=== PATIENT | female | born 1940 | race Caucasian/White ===

== ENCOUNTER 2016-12-23 22:19 | Emergency (ER) | payer OTHER ==
[2016-12-23 22:24] VITALS: TEMP 97; BMI 21.2
--- NOTE | 2016-12-23 22:48 | PDOC ---
[id number]: No Limitations - History of Present Illness Initial Comments: 12/23/16 23:23 The patient is a 75 year old female, with a significant past medical history of neuropathy, who presents to the emergency department with chest discomfort since approximately 7-8PM this evening. The patient describes the chest discomfort as a tightness and rates her discomfort as a 7/10 in severity. The patient states that she was sitting down watching TV with her feet up when she first began experiencing the chest discomfort. The patient reports taking a baby aspirin after the discomfort began, with some relief. The patient reports that she just finished a course of antibiotics yesterday for a cough. The patient denies shortness of breath, diaphoresis or palpitations. The patient denies fever, chills, nausea, vomiting, diarrhea or any dysuria. The patient denies any sick contacts at home. The patients daughter is at the bedside. Allergies: None reported. Past Surgical History: Cataract Surgery, Hammertoe Surgery. Social History: Former smoker (quit in 1974). Denies alcohol or drug use. PCP: Dr. Donato Mendez <Elana Sheriff - Last Filed: 12/24/16 00:53> <Drake Erickson - Last Filed: 12/28/16 02:34> - General Chief Complaint: Injury Stated Complaint: INJURY Time Seen by Provider: 12/23/16 22:36 Past History <Elana Sheriff - Last Filed: 12/24/16 00:53> - Past Medical History Anemia: No Asthma: No Cancer: No Cardiac Disorders: No CVA: No COPD: No CHF: No Dementia: No Diabetes: No GI Disorders: No Disorders: No HTN: No Hypercholesterolemia: No Liver Disease: No Seizures: No Thyroid Disease: No Other medical history: neuropathy - Surgical History Abdominal Surgery: No Appendectomy: No Cardiac Surgery: No Cholecystectomy: No Lung Surgery: No Neurologic Surgery: No Orthopedic Surgery: No - Psycho/Social/Smoking Cessation Hx Suicidal Ideation: No Smoking History: Never smoked Have you smoked in the past 12 months: No If you are a former smoker, when did you quit?: 1974 Information on smoking cessation initiated: No Hx Alcohol Use: Yes Drug/Substance Use Hx: No Substance Use Type: Alcohol Hx Substance Use Treatment: No <Drake Erickson - Last Filed: 12/28/16 02:34> - Past Medical History Allergies/Adverse Reactions: Allergies Allergy/AdvReac Type Severity Reaction Status Date / Time No Known Drug Allergies Allergy Verified 12/23/16 22:24 Home Medications: Ambulatory Orders Aspirin Coated [Ecotrin -] 81 mg PO HS 08/04/16 Atorvastatin Ca [Lipitor] 20 mg PO UTDICT 08/04/16 Calcium 250Mg/Vit-D 125 Units [Oscal 250 mg+D -] 1 combo PO DAILY 08/04/16 Review of Systems - Review of Systems Able to Perform ROS?: Yes Comments:: 12/23/16 23:18 CONSTITUTIONAL: No fever, no chills, no fatigue EYES: No visual changes ENT: No ear pain, no sore throat CARDIOVASCULAR: +Chest discomfort. No palpitations RESPIRATORY: No cough, no SOB GI: No abdominal pain, no nausea, no vomiting, no constipation, no diarrhea GENITOURINARY: No dysuria, no frequency, no hematuria MUSKULOSKELETAL: No back pain, no joint pain, no myalgias SKIN: No rash NEURO: No headache <Elana Sheriff - Last Filed: 12/24/16 00:53> *Physical Exam - Vital Signs Last Vital Signs Temp Pulse Resp BP Pulse Ox 97 F L 68 18 136/72 99 12/23/16 22:21 12/23/16 22:21 12/23/16 22:21 12/23/16 22:21 12/23/16 22:21 - Physical Exam Comments: 12/23/16 23:08 CONSTITUTIONAL: Well-appearing; well-nourished; in no apparent distress. HEAD: Normocephalic; atraumatic. EYES: PERRL; EOM intact. ENMT: External appears normal; normal oropharynx. NECK: Supple; non-tender; no cervical lymphadenopathy. CHEST: Reproducible midsternal chest wall tenderness to palpation. CARD: Normal S1, S2; no murmurs, rubs, or gallops. RESP: Normal chest excursion with respiration; breath sounds clear and equal bilaterally; no wheezes, rhonchi, or rales. ABD: Soft, non-distended; non-tender; no palpable organomegaly, no palpable hernias. EXT: Normal ROM in all four extremities; non-tender to palpation; distal pulses intact. SKIN: Warm, dry, no rash. NEURO: No focal neurological deficiencies. <Elana Sheriff - Last Filed: 12/24/16 00:53> - Vital Signs Last Vital Signs Temp Pulse Resp BP Pulse Ox 97 F L 68 18 136/72 99 12/23/16 22:21 12/23/16 22:21 12/23/16 22:21 12/23/16 22:21 12/23/16 22:21 <Drake Erickson - Last Filed: 12/28/16 02:34> Heart Score/ECG Review #1 ECG reviewed & interpreted by me at: 22:44 (Vent Rate: 65 bpm. Sinus rhythm. Poor R wave progression precordial leads. Possible left atrial enlargement.) #2 ECG reviewed & interpreted by me at: 00:43 (Vent Rate: 60 bpm. Sinus rhythm. Poor R wave progression precordial leads. ) <Elana Sheriff - Last Filed: 12/24/16 00:53> ED Treatment Course - LABORATORY CBC & Chemistry Diagram: 12/23/16 23:07 12/23/16 23:55 <Elana Sheriff - Last Filed: 12/24/16 00:53> - LABORATORY CBC & Chemistry Diagram: 12/23/16 23:07 12/23/16 23:55 <Drake Erickson - Last Filed: 12/28/16 02:34> Medical Decision Making - Medical Decision Making 12/24/16 00:40 Patient is a 75-year-old female who presents with atypical chest discomfort several hours duration. In the ER, patient is awake and alert, hemodynamically stable, with reproducible midsternal tenderness to palpation. EKG shows no evidence of acute ischemia. Chest x-ray reveals no evidence of infiltrate or effusion. There is no evidence of cardiomegaly. Differential diagnoses includes ACS versus costochondritis given patient has recently recovered from a respiratory infection treated with Zithromax. We'll administer aspirin and transdermal nitroglycerin. Will obtain serial cardiac enzymes and EKGs. If negative, we'll consider discharge with outpatient follow-up. <Drake Erickson - Last Filed: 12/28/16 02:34> *DC/Admit/Observation/Transfer - Attestations Scribe Attestion: 12/23/16 22:58 Documentation prepared by Elana Sheriff, acting as medical office rep for Drake Erickson MD. <Elana Sheriff - Last Filed: 12/24/16 00:53> - Attestations Physician Attestion: 12/24/16 00:40 The documentation was prepared by the scribe under my direct supervision. I have reviewed the documentation which correctly represents the findings, medical decision-making and critical action taken by me. <Drake Erickson - Last Filed: 12/28/16 02:34> Diagnosis at time of Disposition: Chest pain - Discharge Dispostion Disposition: HOME Condition at time of disposition: Good - Referrals Referrals: Donato Mendez MD [Primary Care Provider] - - Patient Instructions Additional Instructions: At this time, there is no evidence of any damage to the heart tissues and your evaluation is reassuring. It is essential for you to follow up with the PMD within the next 24 hours and if there is any change otherwise in your symptoms, please return immediately to the ED.
[2016-12-23] MEDS ORDERED: NITROGLYCERIN 2% OINTMENT - 1GM PACKET TD ONE ×3 (23:08→23:50)
[2016-12-23] MEDS ORDERED: ASPIRIN 81 MG CHEWABLE TABLETS PO ONE (23:08)
[2016-12-23] MEDS ORDERED: ASPIRIN 81 MG CHEWABLE TABLETS ONE (23:49)
[2016-12-24 00:20] LABS: BASOPHIL 0.7 % (0-2.0); EOSINOPHIL 1.9 % (0-4.5); MCH 31.6 pg (25.7-33.7); MCHC 33.9 g/dl (32.0-36.0); MEAN CELL VOLUME 93.2 fl (80-96); MEAN PLT VOLUME 6.6 fl (7.5-11.1); PLATELET COUNT 311 K/MM3 (134-434); RDW 13.1 % (11.6-15.6); WHITE BLOOD COUNT 7.8 K/mm3 (4.0-10.0)
[2016-12-24 00:34] LABS: INR 1.09 (0.82-1.09)
[2016-12-24 00:43] LABS: ALBUMIN 3.6 g/dl (3.4-5.0); ANION GAP 8 (8-16); BILIRUBIN,TOTAL 0.3 mg/dL (0.2-1.0); CALCIUM 8.9 mg/dL (8.5-10.1); CO2 30 mmol/L (21-32); CREATININE 0.7 mg/dL (0.55-1.02); GLUCOSE,RANDOM 104 mg/dL (74-106); SGOT/AST 19 U/L (15-37); SGPT/ALT 22 U/L (12-78); TOT PROT 7.4 g/dl (6.4-8.2)
[2016-12-24 00:45] LABS: ALK PHOS 85 U/L (45-117); TROPONIN I < 0.02 ng/ml (0.00-0.05)
--- NOTE | 2016-12-24 02:17 | PDOC ---
*Physical Exam - Vital Signs Last Vital Signs Temp Pulse Resp BP Pulse Ox 97 F L 68 18 136/72 99 12/23/16 22:21 12/23/16 22:21 12/23/16 22:21 12/23/16 22:21 12/23/16 22:21 ED Treatment Course - LABORATORY CBC & Chemistry Diagram: 12/23/16 23:07 12/23/16 23:55 - ADDITIONAL ORDERS Additional order review: Laboratory Results 12/23/16 12/23/16 23:55 23:55 INR 1.09 Sodium 139 Potassium 4.4 Chloride 101 Carbon Dioxide 30 Anion Gap 8 BUN 15 Creatinine 0.7 Creat Clearance w eGFR > 60 Random Glucose 104 Calcium 8.9 Total Bilirubin 0.3 AST 19 ALT 22 Alkaline Phosphatase 85 Creatine Kinase 102 Troponin I < 0.02 Total Protein 7.4 Albumin 3.6 12/23/16 23:07 RBC 4.12 MCV 93.2 MCHC 33.9 RDW 13.1 MPV 6.6 L Neutrophils % 71.0 Lymphocytes % 16.5 Monocytes % 9.9 Eosinophils % 1.9 Basophils % 0.7 - Medications Given in the ED: ED Medications Discontinued Medications Generic Name Dose Route Start Last Admin Trade Name Freq PRN Reason Stop Dose Admin Aspirin 162 mg 12/23/16 23:08 12/23/16 23:40 Asa - PO 12/23/16 23:09 162 mg ONCE ONE Administration Nitroglycerin 0.5 inch 12/23/16 23:08 12/23/16 23:40 Nitro-Bid 2% Paste - TD 12/23/16 23:09 0.5 inch ONCE ONE Administration Medical Decision Making - Medical Decision Making 12/24/16 02:16 Pt received on sign out, comfortable. The patient presents with atypical chest pain; initial troponin and EKG reassuring. She will have another troponin at 0500 and will repeat EKG as well; she will likely be discharged pending abnormality. 12/24/16 06:13 Troponin repeat is negative and she has no current symptoms. She is discharged at this time with instruction to return if there is any change otherwise in symptoms. Encouraged to follow up with the PMD within 24 hours. *DC/Admit/Observation/Transfer Diagnosis at time of Disposition: Chest pain Qualifiers: Chest pain type: other chest pain Qualified Code(s): R07.89 - Other chest pain ; R07.8 - Other chest pain - Discharge Dispostion Disposition: HOME Condition at time of disposition: Good Admit: No Decision to Admit order Date/Time: 12/24/16 06:14 - Referrals Referrals: Donato Mendez MD [Primary Care Provider] - - Patient Instructions Additional Instructions: At this time, there is no evidence of any damage to the heart tissues and your evaluation is reassuring. It is essential for you to follow up with the PMD within the next 24 hours and if there is any change otherwise in your symptoms, please return immediately to the ED. - Post Discharge Activity
[2016-12-24 04:28] VITALS: BP 125/65; PULSE 65
--- NOTE | 2016-12-24 11:12 | EKG ---
Test Reason : Blood Pressure : / mmHG Vent. Rate : 060 BPM Atrial Rate : 060 BPM P-R Int : 252 ms QRS Dur : 086 ms QT Int : 416 ms P-R-T Axes : 066 041 061 degrees QTc Int : 416 ms SINUS RHYTHM WITH 1ST DEGREE A-V BLOCK POSSIBLE ANTERIOR INFARCT , AGE UNDETERMINED ABNORMAL ECG WHEN COMPARED WITH ECG OF 23-DEC-2016 22:44, NO SIGNIFICANT CHANGE WAS FOUND Confirmed by MADIHA SERRATO MD ([id number]) on 12/24/2016 11:12:17 AM Referred By: Confirmed By:MADIHA SERRATO MD
--- NOTE | 2016-12-24 11:34 | EKG ---
Test Reason : Blood Pressure : / mmHG Vent. Rate : 065 BPM Atrial Rate : 065 BPM P-R Int : 228 ms QRS Dur : 080 ms QT Int : 402 ms P-R-T Axes : 066 019 054 degrees QTc Int : 418 ms POOR DATA QUALITY, INTERPRETATION MAY BE ADVERSELY AFFECTED SINUS RHYTHM WITH 1ST DEGREE A-V BLOCK POSSIBLE LEFT ATRIAL ENLARGEMENT BORDERLINE ECG NO PREVIOUS ECGS AVAILABLE Confirmed by ROJELIO LINDO, MADIHA ([id number]) on 12/24/2016 11:33:47 AM Referred By: Confirmed By:MADIHA SERRATO MD
== END 2016-12-24 06:26 | disposition home or self-care (01) ==
LOC: JER 22:19
DX: R07.89 Other chest pain (principal)
CPT/HCPCS: 36415; 71010-TC; 80053; 82550; 84484; 85025; 85610; 93005; 93010; 99283-25

== ENCOUNTER 2017-04-05 21:03 | Inpatient (IN) | payer OTHER ==
--- NOTE | 2017-04-05 21:08 | PDOC ---
History of Present Illness - History of Present Illness Initial Comments: 04/05/17 21:37 Patient is a 76 year old female presenting to the ED with several episodes of difficulty speaking from 6:00PM this evening. Patient is accompanied by daughter who reports the patient had multiple episodes of difficulty articulating her sentences and word finding. She states that the patient was not slurring her words but she does have a mild stutter at baseline which seemed to be worse this evening. The patient is talking during interview and is able to answer questions in clear sentences. Daughter notes that the patient has been having numbness and tingling to her lower extremities bilaterally for the past month that has been followed up with by Dr. Aguilar. Denies facial droop, weakness, difficulty with coordination, or headache. <Irene Mccann - Last Filed: 04/05/17 23:34> <Drake Erickson - Last Filed: 04/06/17 02:18> - General Chief Complaint: CVA/TIA Stated Complaint: Altered Mental Status Time Seen by Provider: 04/05/17 21:08 Past History <Irene Mccann - Last Filed: 04/05/17 23:34> - Past Medical History Anemia: No Asthma: No Cancer: No Cardiac Disorders: No CVA: No COPD: No CHF: No Dementia: No Diabetes: No GI Disorders: No Disorders: No HTN: No Hypercholesterolemia: No Liver Disease: No Seizures: No Thyroid Disease: No - Surgical History Abdominal Surgery: No Appendectomy: No Cardiac Surgery: No Cholecystectomy: No Lung Surgery: No Neurologic Surgery: No Orthopedic Surgery: No - Psycho/Social/Smoking Cessation Hx Suicidal Ideation: No Smoking History: Never smoked Have you smoked in the past 12 months: No If you are a former smoker, when did you quit?: 1974 Information on smoking cessation initiated: No Hx Alcohol Use: No Drug/Substance Use Hx: No Substance Use Type: Alcohol Hx Substance Use Treatment: No <Drake Erickson - Last Filed: 04/06/17 02:18> - Past Medical History Allergies/Adverse Reactions: Allergies Allergy/AdvReac Type Severity Reaction Status Date / Time No Known Drug Allergies Allergy Verified 04/05/17 21:06 Home Medications: Ambulatory Orders Aspirin Coated [Ecotrin -] 81 mg PO HS 08/04/16 Atorvastatin Ca [Lipitor] 20 mg PO UTDICT 08/04/16 Calcium 250Mg/Vit-D 125 Units [Oscal 250 mg+D -] 1 combo PO DAILY 08/04/16 Review of Systems - Review of Systems Comments:: 04/05/17 21:38 CONSTITUTIONAL: No fever, no chills, no fatigue EYES: No visual changes ENT: No ear pain, no sore throat CARDIOVASCULAR: No chest pain, no palpitations RESPIRATORY: No cough, no SOB GI: No abdominal pain, no nausea, no vomiting, no constipation, no diarrhea GENITOURINARY: No dysuria, no frequency, no hematuria MUSKULOSKELETAL: No backpain, no joint pain, no myalgias SKIN: No rash NEURO: Difficulty articulating sentences and word finding, mild stutter, lower extremity numbness/tingling. No headache <Irene Mccann - Last Filed: 04/05/17 23:34> *Physical Exam - Vital Signs Last Vital Signs Temp Pulse Resp BP Pulse Ox 98.9 F 92 H 18 115/51 97 04/05/17 21:06 04/05/17 21:06 04/05/17 21:06 04/05/17 21:06 04/05/17 21:06 <Irene Mccann - Last Filed: 04/05/17 23:34> - Vital Signs Last Vital Signs Temp Pulse Resp BP Pulse Ox 98.9 F 92 H 18 115/51 97 04/05/17 21:06 04/05/17 21:06 04/05/17 21:06 04/05/17 21:06 04/05/17 21:06 - Physical Exam Comments: 04/05/17 21:39 EXAMINATION CONSTITUTIONAL: Well-appearing; well-nourished; in no apparent distress HEAD: Normocephalic; atraumatic EYES: PERRL; EOM intact ENMT: External appears normal; normal oropharynx NECK: Supple; non-tender; no cervical lymphadenopathy CARD: Normal S1, S2; no murmurs, rubs, or gallops RESP: Normal chest excursion with respiration; breath sounds clear and equal bilaterally; no wheezes, rhonchi, or rales ABD: Soft, non-distended; non-tender; no palpable organomegaly, no palpable hernias EXT: Normal ROM in all four extremities; non-tender to palpation; distal pulses intact SKIN: Warm, dry, no rash NEURO: AOx3, cranial nerves II through XII grossly intact; motor is 5 of 54; there is no pronation drift; gait-deferred. <DreDrake - Last Filed: 04/06/17 02:18> NIH Stroke Scale - Last Known Well Date/Time & Onset Date Last Known Well: 04/05/17 Time Last Known Well: 06:15 - Initial Evaluation Level of consciousness: Alert Ask patient the month and their age: Answers both correctly Ask patient to open & close eyes; make fist and let go: Obeys both correctly Best gaze (horizontal eye movement): Normal Visual field testing: No visual field loss Facial paresis (Show teeth/raise eyebrows/close eyes tight): Normal symmetrical movement Motor Function: Left Arm: Normal Motor Function: Right Arm: Normal (extends arm 90 (or 45) degrees for 10 seconds without drift Motor Function: Left Leg: Normal (extends leg 30 degrees for 5 seconds without drift) Motor Function: Right Leg: Normal (extends leg 30 degrees for 5 seconds without drift) Limb Ataxia: No ataxia Sensory(Use pinprick test arms,legs,trunk,face/side to side): Normal Best language (Describe picture, name items, read sentences): Mild to moderate aphasia Dysarthria (read several words): Normal articulation Extinction and Inattention: No abnormality - Total Score NIH Stroke Scale Score: 1 <DreDrake - Last Filed: 04/06/17 02:18> Heart Score/ECG Review #1 04/05/17 23:34 Normal sinus rhythm at 83 bpm Possible Anterior infarct, age undetermined Abnormal ECG <Irene Mccann - Last Filed: 04/05/17 23:34> Critical Care Time/MDM Note - Medical Decision Making Note: 04/05/17 21:44 Patient 76-year-old female who presents with signs and symptoms of expressive aphasia (word finding difficulty) that has recurred several times since 6:15 on the day of arrival. Patient's last episode occurred shortly before evaluation by this Love immediately upon arrival in the ER. NIH stroke scale is noted to be 1. Initial head CT showed no evidence of acute intracranial pathology. Case discussed with Dr. Guerra of neurology. Given the low NIH stroke scale and the resolution of the patient's symptoms, patient was not a TPA candidate. Patient had received aspirin by mouth, and was scheduled for a carotid Doppler and CTA of brain. 04/05/17 22:25 Patient noted to have suffered a generalized tonic-clonic seizure that required 1 mg of Ativan to terminate. Will obtain CTA of brain with IV contrast. We'll rediscuss with neurology. 04/05/17 22:[address] Guerra again. Recommends administration of Keppra-1000 mg IV. 04/06/17 01:15 Patient regaining normal mental status, follows commands, no focal neurological deficits are appreciated. CTA of brain shows no evidence of aneurysmal dilatated dilation or significant stenosis or occlusion. Will admit to stroke/ telemetry further evaluation and treatment with seizure precautions. <Drake Erickson - Last Filed: 04/06/17 02:18> Discharge Disposition <Irene Mccann - Last Filed: 04/05/17 23:34> - Discharge Dispostion Admit: Yes <Drake Erickson - Last Filed: 04/06/17 02:18> - Diagnosis Seizure TIA (transient ischemic attack) Qualifiers: Transient cerebral ischemia type: unspecified Qualified Code(s): G45.9 - Transient cerebral ischemic attack, unspecified - Referrals Attestations - Attestations 04/05/17 21:38 Documentation prepared by Irene Mccann, acting as emergency medical technician/driver for Drake Erickson MD. <Irene Mccann - Last Filed: 04/05/17 23:34> ED Treatment Course - LABORATORY CBC & Chemistry Diagram: 04/05/17 21:30 04/05/17 21:30 - RADIOLOGY Radiograph Interpretation: 04/05/17 21:[address] Impression: No CT evidence of acute intracranial pathology as discussed. Moderate periventricular chronic microvascular ischemic changes are seen. A small amount of fluid is noted within the left mastoid air cells posteriorly. Reported By: Rjei Epps MD <Irene Mccann - Last Filed: 04/05/17 23:34> - LABORATORY CBC & Chemistry Diagram: 04/05/17 21:30 04/05/17 21:30 <Drake Erickson - Last Filed: 04/06/17 02:18>
[2017-04-05 21:10] VITALS: BMI 20.3
[2017-04-05] MEDS ORDERED: ASPIRIN 81 MG CHEWABLE TABLETS PO ONE (21:31)
[2017-04-05] MEDS ORDERED: ASPIRIN 81 MG CHEWABLE TABLETS ONE (21:50)
[2017-04-05] MEDS: SODIUM CHLORIDE 1,000 ML IV SCH (21:59)
[2017-04-05 22:00] LABS: BASOPHIL 1.1 % (0-2.0); EOSINOPHIL 0.5 % (0-4.5); MCH 28.6 pg (25.7-33.7); MCHC 32.9 g/dl (32.0-36.0); MEAN PLT VOLUME 6.2 fl (7.5-11.1); NEUTROPHILS 81.3 % (42.8-82.8); PLATELET COUNT 438 K/MM3 (134-434); RDW 14.5 % (11.6-15.6); WHITE BLOOD COUNT 9.7 K/mm3 (4.0-10.0)
[2017-04-05] MEDS ORDERED: LORazepam 2 MG/ML SDV VIAL ONE (22:12)
[2017-04-05 22:16] LABS: INR 1.28 (0.82-1.09); PROTHROMBIN TIME (PATIENT) 14.1 SEC (9.98-11.88)
[2017-04-05 22:28] LABS: ALBUMIN 2.5 g/dl (3.4-5.0); ANION GAP 10 (8-16); BILIRUBIN,TOTAL 0.4 mg/dL (0.2-1.0); CALCIUM 8.4 mg/dL (8.5-10.1); CHOLESTEROL 169 mg/dL (50-200); CO2 26 mmol/L (21-32); CREATININE 0.5 mg/dL (0.55-1.02); GLUCOSE,RANDOM 101 mg/dL (74-106); LDL CHOLESTEROL (ONLY SJRH) 123 mg/dL (5-100); SGOT/AST 53 U/L (15-37); SGPT/ALT 58 U/L (12-78); TOT PROT 6.7 g/dl (6.4-8.2)
[2017-04-05 22:29] LABS: ALK PHOS 130 U/L (45-117); TROPONIN I < 0.02 ng/ml (0.00-0.05)
[2017-04-05] MEDS ORDERED: levETIRAcetam 500 MG/5 ML INJECTION VIAL IVPB ONE ×2 (22:32→22:36)
[2017-04-06] MEDS ORDERED: LORazepam 0.5 MG TABLET PO ONE (01:37)
[2017-04-06] MEDS ORDERED: LORazepam 0.5 MG TABLET ONE (02:29)
[2017-04-06 06:30] LABS: URINE APPEARANCE CLEAR; URINE BILIRUBIN NEGATIVE (NEGATIVE); URINE COLOR STRAW; URINE GLUCOSE (UA) NEGATIVE (NEGATIVE); URINE KETONE TRACE (NEGATIVE); URINE LEUK ESTERASE NEGATIVE (NEGATIVE); URINE NITRITE NEGATIVE (NEGATIVE); URINE PROTEIN NEGATIVE (NEGATIVE); URINE UROBILINOGEN NEGATIVE E.U./dl (0.2-1.0)
[2017-04-06 06:35] LABS: URINE BLOOD 1+ (NEGATIVE)
[2017-04-06 06:38] LABS: URINE MARIJUANA THC NEGATIVE ng/ml (CUTOFF=50)
[2017-04-06 06:40] LABS: URINE WBC 1 /hpf (3-5)
--- NOTE | 2017-04-06 08:28 | CON.NEURO ---
Consult - History of Present Illness History of Present Illness: 76 year old female presenting to the ED with several episodes of difficulty speaking from 6:00PM this evening. Patient is accompanied by daughter who reports the patient had multiple episodes of difficulty articulating her sentences and word finding. She states that the patient was not slurring her words but she does have a mild stutter at baseline which seemed to be worse this evening. The patient is talking during interview and is able to answer questions in clear sentences. Daughter notes that the patient has been having numbness and tingling to her lower extremities --treated empirically as RLS-- started on mirapex; she feels did not suite her--di not take last 48 hours. Did take double dose cipro day bf yesterday. IN ER -- noted to have generalized seizure. Denies facial droop, weakness, difficulty with coordination, or headache CTA (-), Doppler (-). - History Source History Provided By: Patient - Alcohol/Substance Use Hx Alcohol Use: No - Smoking History Smoking history: Never smoked Have you smoked in the past 12 months: No If you are a former smoker, when did you quit?: 1975 Home Medications - Allergies Allergies/Adverse Reactions: Allergies Allergy/AdvReac Type Severity Reaction Status Date / Time No Known Drug Allergies Allergy Verified 04/05/17 21:06 - Home Medications Home Medications: Ambulatory Orders Aspirin Coated [Ecotrin -] 81 mg PO DAILY 08/04/16 Atorvastatin Ca [Lipitor] 20 mg PO ASDIR 08/04/16 Calcium 250Mg/Vit-D 125 Units [Oscal 250 mg+D -] 1 combo PO DAILY 08/04/16 Ciprofloxacin HCl [Cipro] 500 mg PO BID 04/06/17 Pramipexole Dihydrochloride [Mirapex -] 0.25 mg PO HS 04/06/17 Physical Exam-Neuro Vital Signs: Vital Signs Temperature 98.9 F 04/05/17 21:06 Pulse Rate 67 04/06/17 06:27 Respiratory Rate 18 04/06/17 06:27 Blood Pressure 116/72 04/06/17 06:27 O2 Sat by Pulse Oximetry (%) 100 04/06/17 06:27 Constitutional: Yes: Well Nourished Neck: Yes: WNL Respiratory: Yes: Regular Gastrointestinal: Yes: Normal Bowel Sounds Labs: INR, PTT INR 1.28 (0.82-1.09) H 04/05/17 21:30 CBCD WBC 9.7 K/mm3 (4.0-10.0) 04/05/17 21:30 RBC 3.63 M/mm3 (3.60-5.2) 04/05/17 21:30 Hgb 10.4 GM/dL (10.7-15.3) L D 04/05/17 21:30 Hct 31.6 % (32.4-45.2) L D 04/05/17 21:30 MCV 87.0 fl (80-96) 04/05/17 21:30 MCHC 32.9 g/dl (32.0-36.0) 04/05/17 21:30 RDW 14.5 % (11.6-15.6) D 04/05/17 21:30 Plt Count 438 K/MM3 (134-434) H D 04/05/17 21:30 MPV 6.2 fl (7.5-11.1) L 04/05/17 21:30 CMP Sodium 131 mmol/L (136-145) L 04/05/17 21:30 Potassium 3.9 mmol/L (3.5-5.1) 04/05/17 21:30 Chloride 95 mmol/L (98-107) L 04/05/17 21:30 Carbon Dioxide 26 mmol/L (21-32) 04/05/17 21:30 Anion Gap 10 (8-16) 04/05/17 21:30 BUN 12 mg/dL (7-18) 04/05/17 21:30 Creatinine 0.5 mg/dL (0.55-1.02) L D 04/05/17 21:30 Creat Clearance w eGFR > 60 (>60) 04/05/17 21:30 Calcium 8.4 mg/dL (8.5-10.1) L 04/05/17 21:30 Total Bilirubin 0.4 mg/dL (0.2-1.0) D 04/05/17 21:30 AST 53 U/L (15-37) H D 04/05/17 21:30 ALT 58 U/L (12-78) D 04/05/17 21:30 Alkaline Phosphatase 130 U/L (45-117) H D 04/05/17 21:30 Total Protein 6.7 g/dl (6.4-8.2) 04/05/17 21:30 Albumin 2.5 g/dl (3.4-5.0) L D 04/05/17 21:30 - Neuro Exam Level Of Consciousness: Yes: Alert (awake and alert, EOMI, VFF, no facial, motor 5/5, no drift, plantars up ) NIH Stroke Scale - Total Score NIH Stroke Scale Score: 0 Imaging - Results Cat Scan: Report Reviewed, Image Reviewed (04/05/17 Status: [place] [address] Unit Number: [id number] EXAM#: TYPE /EXAM: RESULT: [id number] US/CAROTID COLOR FLOW DOPP US HISTORY PROVIDED: Expressive aphasia Real time and doppler evaluation of the carotid arteries demonstrates the following: A small amount of atherosclerotic plaque is identified on real time imaging of the common carotid and proximal internal and external carotid arteries bilaterally. On the right side, Doppler velocity measurements are within normal limits within these vessels with no velocity elevations suspicious for hemodynamically significant stenoses. On the left side , Doppler velocity measurements are elevated within the common carotid artery. Velocities return to normal distally are not significantly elevated within the internal carotid artery. Slightly elevated velocities are noted within the external carotid. Forward flow is present within both vertebral arteries. IMPRESSION: Mild atherosclerotic disease with no evidence of hemodynamically significant stenoses.) Problem List - Problems (1) Seizure Code(s): R56.9 - UNSPECIFIED CONVULSIONS (2) TIA (transient ischemic attack) Code(s): G45.9 - TRANSIENT CEREBRAL ISCHEMIC ATTACK, UNSPECIFIED Qualifiers: Transient cerebral ischemia type: unspecified Qualified Code(s): G45.9 - Transient cerebral ischemic attack, unspecified Assessment/Plan 76 year old female presenting to the ED with several episodes of difficulty speaking from 6:00PM this evening. Patient is accompanied by daughter who reports the patient had multiple episodes of difficulty articulating her sentences and word finding. She states that the patient was not slurring her words but she does have a mild stutter at baseline which seemed to be worse this evening. The patient is talking during interview and is able to answer questions in clear sentences. Daughter notes that the patient has been having numbness and tingling to her lower extremities --treated empirically as RLS-- started on mirapex; she feels did not suite her--di not take last 48 hours. Did take double dose cipro day bf yesterday. IN ER -- noted to have generalized seizure. Denies facial droop, weakness, difficulty with coordination, or headache CTA (-), Doppler (-). new onset seziures-- ? cipro effect, doubt mirapax induced; no clear signs of infection/meningitis, encephalitis no role in LP at this juncture MRI BRAIN with DEUCE elevated LFTS , anemia--GI ORTIZ (anemia can cause RLS) keppra 500BID outpt EEG Dr Guerra
--- NOTE | 2017-04-06 09:13 | HP ---
Admitting History and Physical - Admission Chief Complaint: [place] SEIZURE LAST NIGHT. 2 DAYS PROIR HAD SHIVERING EPISODE. 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 Pulmonary: Yes: COPD ...: No Heme/Onc: Yes: Anemia Rheumatology: Yes: Other (O/A) - Past Surgical History Past Surgical History: Yes: Cataract Removal (BREAST BENGHN LESION) - Smoking History Smoking history: Never smoked Have you smoked in the past 12 months: No If you are a former smoker, when did you quit?: 1974 - Alcohol/Substance Use Hx Alcohol Use: No - Social History Usual Living Arrangement: Yes: With Spouse ADL: Independent History of Recent Travel: No Home Medications - Allergies Allergies/Adverse Reactions: Allergies Allergy/AdvReac Type Severity Reaction Status Date / Time No Known Drug Allergies Allergy Verified 04/05/17 21:06 - Home Medications Home Medications: Ambulatory Orders Aspirin Coated [Ecotrin -] 81 mg PO DAILY 08/04/16 Atorvastatin Ca [Lipitor] 20 mg PO ASDIR 08/04/16 Calcium 250Mg/Vit-D 125 Units [Oscal 250 mg+D -] 1 combo PO DAILY 08/04/16 Ciprofloxacin HCl [Cipro] 500 mg PO BID 04/06/17 Pramipexole Dihydrochloride [Mirapex -] 0.25 mg PO HS 04/06/17 Family Disease History - Family Disease History Family History: Unremarkable (BROTHER Yumiko MUKHERJEE ) Review of Systems - Review of Systems Constitutional: reports: No Symptoms Eyes: reports: No Symptoms HENT: reports: No Symptoms Neck: reports: No Symptoms Cardiovascular: reports: No Symptoms Respiratory: reports: No Symptoms Gastrointestinal: reports: No Symptoms Genitourinary: reports: No Symptoms Breasts: reports: No Symptoms Reported Musculoskeletal: reports: No Symptoms Integumentary: reports: No Symptoms (RLS) Endocrine: reports: No Symptoms Hematology/Lymphatic: reports: No Symptoms Psychiatric: reports: No Symptoms Physical Examination Vital Signs: Vital Signs Temperature 98.9 F 04/05/17 21:06 Pulse Rate 67 04/06/17 06:27 Respiratory Rate 18 04/06/17 06:27 Blood Pressure 116/72 04/06/17 06:27 O2 Sat by Pulse Oximetry (%) 100 04/06/17 06:27 Constitutional: Yes: Other (LOSS APETITE) Eyes: Yes: WNL HENT: Yes: WNL Neck: Yes: WNL Cardiovascular: Yes: WNL Respiratory: Yes: WNL Gastrointestinal: Yes: WNL ...Rectal Exam: Yes: Deferred Renal/: Yes: WNL Breast(s): Yes: WNL Musculoskeletal: Yes: WNL Extremities: Yes: WNL Edema: No Peripheral Pulses WNL: Yes Integumentary: Yes: WNL Neurological: Yes: Babinski positive (QUESTIONABLE) ...Motor Strength: WNL Psychiatric: Yes: WNL Problem List - Problems (1) Seizure Code(s): R56.9 - UNSPECIFIED CONVULSIONS Assessment/Plan MRI BRAIN ANEMIA W/U GI CT CHEST DUE TI GRANULAMATUOS DZ IN PAST LUNG LIVER ULRASOUD AT MINIMUM FOR NOW HAD LFTS IN PAST W/U NEG IN MY OFFICE DYANA WILCOX LAST COLONOSCOPY 2011 NEG
[2017-04-06] MEDS: levETIRAcetam 500 MG TABLET (FP) PO SCH ×2 (10:33→22:32)
[2017-04-06] MEDS ORDERED: levETIRAcetam 500 MG TABLET (FP) PO ONE (10:33)
[2017-04-06 10:56] LABS: BASOPHIL 0.4 % (0-2.0); EOSINOPHIL 1.2 % (0-4.5); MCH 29.2 pg (25.7-33.7); MCHC 33.3 g/dl (32.0-36.0); MEAN CELL VOLUME 87.6 fl (80-96); MEAN PLT VOLUME 5.9 fl (7.5-11.1); NEUTROPHILS 79.6 % (42.8-82.8); PLATELET COUNT 391 K/MM3 (134-434); RDW 14.5 % (11.6-15.6); WHITE BLOOD COUNT 7.9 K/mm3 (4.0-10.0)
[2017-04-06] MEDS: FERROUS GLUCONATE 324 MG TAB (FP) PO SCH (14:06)
--- NOTE | 2017-04-06 17:11 | EKG ---
Test Reason : Blood Pressure : / mmHG Vent. Rate : 083 BPM Atrial Rate : 083 BPM P-R Int : 166 ms QRS Dur : 084 ms QT Int : 378 ms P-R-T Axes : 052 036 058 degrees QTc Int : 444 ms NORMAL SINUS RHYTHM POOR R WAVE PROGRESSION POSSIBLE ANTERIOR INFARCT (CITED ON OR BEFORE 24-DEC-2016) ABNORMAL ECG Confirmed by MD DARYA, MAGALI ([id number]) on 04/06/2017 5:11:13 PM Referred By: Confirmed By:MAGALI LACKEY MD
--- NOTE | 2017-04-06 17:21 | CON.GI ---
Consult Consult Specialty:: GI Referred by:: Dr Bunny Mendez Reason for Consultation:: Anemia and increased LFTs - History of Present Illness Chief Complaint: Expressive aphasia History of Present Illness: 76 F with h/oi HLD and restless leg syndrome recently treated with mirapex which she didn't tolerate (took 2 doses and stopped on her own) admitted after experiencing partial expressive aphasia at home. I am called to evaluate anemia and increased LFTs. Patient/family state no knowledge of liver disease. She had a seizure in the ER after admission. She denies ETOH and doesn't take supplements. She is on a statin. 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 Pulmonary: Yes: COPD ...: No Rheumatology: Yes: Other (O/A) - Past Surgical History Past Surgical History: Yes: Cataract Removal (BREAST BENGHN LESION) - Alcohol/Substance Use Hx Alcohol Use: No - Smoking History Smoking history: Never smoked Have you smoked in the past 12 months: No If you are a former smoker, when did you quit?: 1974 - Social History ADL: Independent History of Recent Travel: No Home Medications - Allergies Allergies/Adverse Reactions: Allergies Allergy/AdvReac Type Severity Reaction Status Date / Time No Known Drug Allergies Allergy Verified 04/05/17 21:06 - Home Medications Home Medications: Ambulatory Orders Aspirin Coated [Ecotrin -] 81 mg PO DAILY 08/04/16 Atorvastatin Ca [Lipitor] 20 mg PO ASDIR 08/04/16 Calcium 250Mg/Vit-D 125 Units [Oscal 250 mg+D -] 1 combo PO DAILY 08/04/16 Ciprofloxacin HCl [Cipro] 500 mg PO BID 04/06/17 Pramipexole Dihydrochloride [Mirapex -] 0.25 mg PO HS 04/06/17 Physical Exam-GI Vital Signs: Vital Signs Temperature 98.4 F 04/06/17 15:40 Pulse Rate 79 04/06/17 15:40 Respiratory Rate 16 04/06/17 15:40 Blood Pressure 121/56 04/06/17 15:40 O2 Sat by Pulse Oximetry (%) 98 04/06/17 10:14 Constitutional: Yes: Thin HENT: Yes: Normocephalic Neck: Yes: Supple Cardiovascular: Yes: Regular Rate and Rhythm Respiratory: Yes: CTA Bilaterally Gastrointestinal Inspection: Yes: WNL ...Auscultate: Yes: Normoactive Bowel Sounds ...Palpate: Yes: Soft. No: Tenderness ...Percussion: Yes: Dullness Labs: CBC, BMP 04/06/17 10:33 INR, PTT INR 1.28 (0.82-1.09) H 04/05/17 21:30 Hepatic Panel Total Bilirubin 0.4 mg/dL (0.2-1.0) D 04/05/17 21:30 AST 53 U/L (15-37) H D 04/05/17 21:30 ALT 58 U/L (12-78) D 04/05/17 21:30 Alkaline Phosphatase 130 U/L (45-117) H D 04/05/17 21:30 Albumin 2.5 g/dl (3.4-5.0) L D 04/05/17 21:30 INR, PTT INR 1.28 (0.82-1.09) H 04/05/17 21:30 Imaging - Results Ultrasound: Report Reviewed (liver with normal morphology) Assessment/Plan Normocytic anemia with normal renal fxn Check B12 and APA Guaiac stool celiac panel Consider heme consult Any procedures to be done as opt Increased LFTs -transaminitis Stop statin Hep B/C and chronic liver panel celiac panel
[2017-04-06] MEDS: SODIUM CHLORIDE 1,000 ML IV SCH (22:34)
[2017-04-07 06:06] LABS: SERUM IRON 28 ug/dL (27-139); TOTAL IRON BINDING CAPACITY 180 ug/dL (250-450); UIBC 152 ug/dL (118-369)
[2017-04-07 07:38] LABS: BASOPHIL 0.7 % (0-2.0); EOSINOPHIL 1.9 % (0-4.5); MCH 29.4 pg (25.7-33.7); MCHC 33.9 g/dl (32.0-36.0); MEAN CELL VOLUME 86.7 fl (80-96); MEAN PLT VOLUME 6.3 fl (7.5-11.1); NEUTROPHILS 77.6 % (42.8-82.8); PLATELET COUNT 407 K/MM3 (134-434); RDW 14.5 % (11.6-15.6)
[2017-04-07 08:39] LABS: ANION GAP 9 (8-16); BILIRUBIN,TOTAL 0.3 mg/dL (0.2-1.0); CALCIUM 7.9 mg/dL (8.5-10.1); CO2 27 mmol/L (21-32); CREATININE 0.3 mg/dL (0.55-1.02); GLUCOSE,RANDOM 78 mg/dL (74-106); SGOT/AST 40 U/L (15-37); SGPT/ALT 43 U/L (12-78)
[2017-04-07 08:41] LABS: ALK PHOS 93 U/L (45-117); TOT PROT 5.4 g/dl (6.4-8.2)
[2017-04-07] MEDS: FERROUS GLUCONATE 324 MG TAB (FP) PO SCH ×2 (09:30→12:44)
[2017-04-07] MEDS: levETIRAcetam 500 MG TABLET (FP) PO SCH (09:30)
--- NOTE | 2017-04-07 09:52 | CON.CARD ---
Consult Consult Specialty:: cardio Referred by:: Bunny Mendez Reason for Consultation:: tele floor placement - History of Present Illness Chief Complaint: altered speech, sz History of Present Illness: 76 year old female presented to the ED with several episodes of difficulty speaking. also with reported numbness and tingling to lower extremities --treated empirically as RLS--started on mirapex as outpt; also on cipro as outpt IN ER she was noted to have generalized seizure. seen by neuro (dr weaver), jacqueline started with plans for outpt EEG (? 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 Pulmonary: Yes: COPD ...: No Rheumatology: Yes: Other (O/A) - Past Surgical History Past Surgical History: Yes: Cataract Removal (BREAST BENGHN LESION) - Alcohol/Substance Use Hx Alcohol Use: No - Smoking History Smoking history: Never smoked Have you smoked in the past 12 months: No If you are a former smoker, when did you quit?: 1974 - Social History ADL: Independent History of Recent Travel: No Home Medications - Allergies Allergies/Adverse Reactions: Allergies Allergy/AdvReac Type Severity Reaction Status Date / Time No Known Drug Allergies Allergy Verified 04/05/17 21:06 - Home Medications Home Medications: Ambulatory Orders Aspirin Coated [Ecotrin -] 81 mg PO DAILY 08/04/16 Atorvastatin Ca [Lipitor] 20 mg PO ASDIR 08/04/16 Calcium 250Mg/Vit-D 125 Units [Oscal 250 mg+D -] 1 combo PO DAILY 08/04/16 Ciprofloxacin HCl [Cipro] 500 mg PO BID 04/06/17 Pramipexole Dihydrochloride [Mirapex -] 0.25 mg PO HS 04/06/17 Family Disease History - Family Disease History Family History: Denies (no cmp) Review of Systems - Review of Systems Constitutional: denies: Chills, Fever Eyes: denies: Eye Pain HENT: denies: Nasal Congestion Neck: denies: Stiffness Cardiovascular: denies: Palpitations Respiratory: denies: Orthopnea, PND Gastrointestinal: denies: Diarrhea, Rectal Bleeding Genitourinary: denies: Burning, Hematuria Musculoskeletal: denies: Muscle Pain Integumentary: denies: Rash Neurological: denies: Numbness, Syncope Endocrine: denies: Excessive Sweating Hematology/Lymphatic: denies: Excessive Bleeding Vital Signs: Vital Signs Temperature 99.7 F H 04/07/17 06:00 Pulse Rate 82 04/07/17 06:00 Respiratory Rate 18 04/07/17 06:00 Blood Pressure 120/57 04/07/17 06:00 O2 Sat by Pulse Oximetry (%) 97 04/06/17 22:00 Constitutional: Yes: Well Nourished, No Distress Eyes: No: Sclera Icterus HENT: No: Nasal Congestion Neck: No: Decreased ROM Respiratory: Yes: CTA Bilaterally. No: Accessory Muscle Use, Rales, Wheezes Gastrointestinal: Yes: Normal Bowel Sounds. No: Distention, Hepatomegaly, Palpable Mass, Tenderness Cardiovascular: Yes: Regular Rate and Rhythm JVD: No Carotid Bruit: No PMI: Non-Displaced Heart Sounds: Yes: S1, S2. No: Gallop Murmur: No: Systolic Murmur, Diastolic Murmur Musculoskeletal: Yes: Other (No kyphosis) Extremities: No: Cool, Cyanosis Edema: No Peripheral Pulses: 2+ Left Carotid, 2+ Right Carotid, 2+ Left Doralis Pedis, 2+ Right Dorsalis Pedis Integumentary: No: Jaundice Neurological: Yes: Alert, Oriented (x3) Psychiatric: No: Agitated - Other Data Labs, Other Data: CBC, BMP 04/07/17 05:35 04/07/17 05:35 INR, PTT INR 1.28 (0.82-1.09) H 04/05/17 21:30 tele: NSR, no hui or tachyarrhythmia Assessment/Plan ECG: NSR, PRWP r/o old AWMI (previously reported) Carotid dopplers: mild, nonob plq CXR: no chf findings new seizures: -per neuro (neuro does not suspect acute CVA per review of their notes) -sz med started, MRI ordered, outpt EEG planned -no clinical features to suggest active CV process -normal ecg and neg troponin. tele normal. had normal nuclear stress test 3 mo ago for atyp cp which since resolved. -no need for tele monitoring here COPD: -per dr mendez -no evidence of a.e. at present mild anemia: -w/u per dr mendez HPL: -LDL 123, HDL 38 -? complying with home atorva -LFTs up to 40s-50s max here--ok to hold home statin for now as per dr jay odell, resume when cleared by GI
[2017-04-07 13:00] VITALS: PULSE 84
--- NOTE | 2017-04-07 17:34 | PN ---
Progress Note (short form) - Note Progress Note: 76 year old female presenting to the ED with several episodes of difficulty speaking from 6:00PM this evening. Patient is accompanied by daughter who reports the patient had multiple episodes of difficulty articulating her sentences and word finding. She states that the patient was not slurring her words but she does have a mild stutter at baseline which seemed to be worse this evening. The patient is talking during interview and is able to answer questions in clear sentences. Daughter notes that the patient has been having numbness and tingling to her lower extremities --treated empirically as RLS-- started on mirapex; she feels did not suite her--di not take last 48 hours. Did take double dose cipro day bf yesterday. IN ER -- noted to have generalized seizure. Denies facial droop, weakness, difficulty with coordination, or headache CTA (-), Doppler (-). Pt. today reports 2 days prior to onset admission she had another neurologic event-she suddenly saw her brother in her right visual field and had shaking of left arm without LOC, lasted for less than 2 mns. Today she does not have an aphasia and has diminished touch/pin sensation in both feet up to ankles, denies neurologic symptoms. Her daughter informs me she has had numbness, ascending in both feet. A&P-Pt. appears to have had two seizures, 1 generalized and other partial with a neuropathy of subacute onset. Plan: 1) Await MRI report-if reported without sig/acute abnormalities pt. may be discharged home with f/u in Dr. Hernandez office(our office will call her) on next week. I will speak to radiology and obtain report prior to her discharge today. 2) D/C meds- Keppra 500mg BID-Have informed pt./her daughter that she should not drive until she is cleared by Dr. Guerra. Jahaira Cross MD [id number]
[2017-04-07 19:01] VITALS: BP 126/59; TEMP 99.8
[2017-04-07] MEDS ORDERED: levETIRAcetam 500 MG TABLET (FP) PO SCH (20:00)
== END 2017-04-07 20:45 | disposition home or self-care (01) | DRG 101 ==
LOC: JER 21:03 → JERBED 04-06 00:31 → UNDOADMIN 04-06 01:03 → J4W 04-06 22:02 → J7W 04-07 13:40
PROVIDERS: ADMIT Family Medicine; ATTEND Family Medicine
DX: R56.9 Unspecified convulsions (principal); G45.9 Transient cerebral ischemic attack, unspecified; J44.9 Chronic obstructive pulmonary disease, unspecified; D64.9 Anemia, unspecified; E78.5 Hyperlipidemia, unspecified
CPT/HCPCS: 36415; 70450-TC; 70496-TC; 70553-TC; 71010-TC; 71250-TC; 76705-TC; 80053; 80307; 81003; 81015; 82465; 82550; 82607; 82728; 82746; 83516; 83540; 83550; 83718; 83721; 84478; 84484; 85025; 85044; 85610; 86803; 86850; 86900; 86901; 87340; 93005; 93010; 93880-TC; 99285-25; A9576